=== PATIENT | male | born 1995 | race Caucasian/White ===

== ENCOUNTER 2017-04-06 11:18 | Observation (INO) | payer OTHER ==
[~2017-04-06] VITALS: Ht 177.8 cm; Wt 89.2 kg
[~2017-04-06 11:18] MED LIST: SERT-234 PO
[2017-04-06] MEDS ORDERED: LEVAQUIN 750MG / 150ML D5W IV STA (11:34)
[2017-04-06] MEDS ORDERED: ALBUT/IPRATROP 3MG/0.5MG NEB 3 ML VIAL INH STA (11:34)
[2017-04-06] MEDS ORDERED: SODIUM CHLORIDE 0.9% 1000ML 1,000 ML IV STA (11:34)
--- NOTE | 2017-04-06 11:45 | EMERGENCY ROOM VISIT NOTE ---
History Report prepared by Renea: Anna Joy Under the Supervision of: Dr. Rolando Murphy M.D. First contact with patient: 11:28 Chief Complaint: RESPIRATORY PROBLEMS Stated Complaint: SHORTNESS OF BREATH - MONO Nursing Triage Summary: Pt sent by [facility]. Pt states test mono + this morning. Pt reports cough with clear sputum, sob, tired, sore throat. Sx began . Pt states dx last with pnx. Given Amoxicillin and Biaxin. History of Present Illness The patient is a 21 year old male who presents to the Emergency Room with complaints of a constant cough beginning on 03/21/16. The patient reports constant shortness of breath beginning a week ago. He states he has been eating and drinking normally. He denies any fever. The patient has been using an albuterol inhaler for his cough. The patient was sent to the ED from [facility] for shortness of breath. He tested positive on the mono spot testing. Lab work from today shows, white blood cell count of 8.6 and a normal renal panel. He is on day 6 of Biaxin and day four of Amoxicillin for pneumonia. The patient states he feels better since starting the antibiotics. The patient did not have a flu shot this year. He denies any recent sick contacts. The patient has never had mono or pneumonia before. Source of History: patient Onset: 03/21/16 Position: other (generalized) Quality: other (cough) Timing: constant Associated Symptoms: + cough, + SOB, No fevers Review of Systems See HPI for pertinent positives & negatives. A total of 10 systems reviewed and were otherwise negative. Past Medical & Surgical Medical Problems: (1) No Known Active Medical Problems Family History Patient reports no known family medical history. Social History Smoking Status: Current Every Day Smoker Marital Status: single Housing Status: lives with roommate Occupation Status: [employer] student Current/Historical Medications No Active Prescriptions or Reported Meds Allergies Coded Allergies: No Known Allergies (Unverified , 04/06/17) Physical Exam Vital Signs Date Time Temp Pulse Resp B/P (MAP) Pulse Ox O2 Delivery O2 Flow Rate FiO2 04/06/17 12:37 98 18 122/81 98 Room Air 04/06/17 11:24 95 Room Air 04/06/17 11:22 37.0 101 18 124/75 95 Room Air Physical Exam GENERAL: Patient is in no acute distress. HEENT: No acute trauma, normocephalic atraumatic, mucous membranes moist, no nasal congestion, no scleral icterus. NECK: No stridor, no adenopathy, no meningismus, trachea is midline. LUNGS: Crackles through out entire left lung, a few scattered wheezes heard, right lung clear. HEART: Tachycardic, regular rhythm, no murmurs. ABDOMEN: Soft, nontender, bowel sounds positive, no hernias, no peritonitis. EXTREMITIES: No cyanosis or edema, full range of motion of all the joints without pain or difficulty, no signs for acute trauma. NEUROLOGIC: Oriented x 3, no acute motor or sensory deficits, no focal weakness. SKIN: No rash, no jaundice, no diaphoresis. Medical Decision & Procedures ER Provider Diagnostic Interpretation: EKG shows a normal sinus rhythm with a rate of 78, no acute ischemia, no ectopy. Radiology results as stated below per my review and radiologist interpretation: CHEST 2 VIEWS ROUTINE FINDINGS: Lung volumes are normal. There is no pneumothorax or pleural effusion. There is lower lung reticulonodular interstitial thickening, greater on the left. There is no lobar consolidation. Cardiac size is normal. Mediastinal contours are normal. IMPRESSION: Lower lung reticulonodular interstitial thickening, greater on the left. The findings suggest an infectious process such as bronchiolitis/bronchopneumonia. Asymmetric interstitial lung disease could appear similar although is considered less likely. Electronically signed by: Richie Banks M.D. Laboratory Results 04/06/17 11:50 Red Blood Count 4.96, Mean Corpuscular Volume 87.3, Mean Corpuscular Hemoglobin 30.8, Mean Corpuscular Hemoglobin Concent 35.3, Mean Platelet Volume 8.9, Neutrophils (%) (Auto) 53.6, Lymphocytes (%) (Auto) 35.6, Monocytes (%) (Auto) 6.1, Eosinophils (%) (Auto) 3.8, Basophils (%) (Auto) 0.7, Neutrophils # (Auto) 4.77, Lymphocytes # (Auto) 3.17, Monocytes # (Auto) 0.54, Eosinophils # (Auto) 0.34, Basophils # (Auto) 0.06 04/06/17 11:50 Test 04/06/17 11:40 04/06/17 11:50 Influenza Type A Antigen Neg for Influ A (NEG) Influenza Type B Antigen Neg for Influ B (NEG) White Blood Count 8.90 K/uL (4.8-10.8) Red Blood Count 4.96 M/uL (4.7-6.1) Hemoglobin 15.3 g/dL (14.0-18.0) Hematocrit 43.3 % (42-52) Mean Corpuscular Volume 87.3 fL (80-100) Mean Corpuscular Hemoglobin 30.8 pg (25-34) Mean Corpuscular Hemoglobin Concent 35.3 g/dl (32-36) Platelet Count 261 K/uL (130-400) Mean Platelet Volume 8.9 fL (7.4-10.4) Neutrophils (%) (Auto) 53.6 % Lymphocytes (%) (Auto) 35.6 % Monocytes (%) (Auto) 6.1 % Eosinophils (%) (Auto) 3.8 % Basophils (%) (Auto) 0.7 % Neutrophils # (Auto) 4.77 K/uL (1.4-6.5) Lymphocytes # (Auto) 3.17 K/uL (1.2-3.4) Monocytes # (Auto) 0.54 K/uL (0.11-0.59) Eosinophils # (Auto) 0.34 K/uL (0-0.5) Basophils # (Auto) 0.06 K/uL (0-0.2) RDW Standard Deviation 38.5 fL (36.4-46.3) RDW Coefficient of Variation 12.1 % (11.5-14.5) Immature Granulocyte % (Auto) 0.2 % Immature Granulocyte # (Auto) 0.02 K/uL (0.00-0.02) Anion Gap 4.0 mmol/L (3-11) Est Creatinine Clear Calc Drug Dose 162.2 ml/min Estimated GFR () 147.2 Estimated GFR (Non- 127.0 BUN/Creatinine Ratio 20.7 (10-20) Lactic Acid Level 1.0 mmol/L (0.4-2.0) Calcium Level 9.5 mg/dl (8.5-10.1) Monoscreen POS (NEG) Laboratory results reviewed by me. Medications Administered Medications (Trade) Dose Ordered Sig/Sofía Route Start Time Stop Time Status Last Admin Dose Admin Sodium Chloride 1,000 ml @ 999 mls/hr Q1H1M STAT IV 04/06/17 11:34 04/06/17 12:34 DC 04/06/17 11:59 999 MLS/HR Levofloxacin (Levaquin / D5W) 750 mg NOW STAT IV 04/06/17 11:34 04/06/17 11:40 DC 04/06/17 12:03 750 MG Albuterol/ Ipratropium (Duoneb) 3 ml NOW STAT INH 04/06/17 11:34 04/06/17 11:40 DC 04/06/17 12:03 3 ML ED Course 1133: The patient was evaluated in room A12B. A complete history and physical exam was performed. 1134: Ordered Duoneb 3 ml INH, Levofloxacin 750 mg IV, Sodium Chloride 1000 ml @ 999 mls/hr IV. 1304: I updated the patient on his test results. He is agreeable to the treatment plan. 1307: Discussed the patient's case with Dr. Melara. The patient will be evaluated for further management. Medical Decision Differential diagnoses: pneumonia, influenza or flu-like symptoms, failed outpatient treatment, sepsis, dehydration, electrolyte imbalance. There is no leukocytosis or concerning anemia. No significant electrolyte abnormality or kidney failure. [place] testing was positive. Influenza testing was negative. Lactic acid level was not elevated making sepsis less likely. Chest film does show a left-sided pneumonia. Blood cultures are pending. EKG showed a sinus rhythm, no acute ischemia. The patient presents with symptoms consistent with pneumonia. He has failed outpatient treatment. He also has a positive mono test. The patient received a DuoNeb, IV Levaquin and IV saline, he is resting comfortably. Given the failed outpatient treatment, I do think a hospital stay is warranted. IV antibiotics are needed. I spoke to the patient and case management. The on-call hospitalist was consulted. Medication Reconcilliation Current Medication List: was personally reviewed by me Blood Pressure Screening Patient's blood pressure: Normal blood pressure Consults Time Called: 1301 Consulting Physician: Dr. Melara Returned Call: 1307 Discussed the patient's case with Dr. Bennett. The patient will be evaluated for further management. Impression Primary Impression: Pneumonia Additional Impressions: Mononucleosis Failure of outpatient treatment Scribe Attestation The scribe's documentation has been prepared under my direction and personally reviewed by me in its entirety. I confirm that the note above accurately reflects all work, treatment, procedures, and medical decision making performed by me. Departure Information Dispostion Being Evaluated By Hospitalist Prescriptions No Active Prescriptions or Reported Meds Referrals No Doctor, Assigned (PCP) Patient Instructions My [facility] Problem Qualifiers
[2017-04-06 12:13] LABS: BASO % 0.7 %; BASO ABS # 0.06 K/uL (0-0.2); EOS % 3.8 %; EOS ABS # 0.34 K/uL (0-0.5); HEMATOCRIT 43.3 % (42-52); HEMOGLOBIN 15.3 g/dL (14.0-18.0); IG# 0.02 K/uL (0.00-0.02); LYMPH % 35.6 %; LYMPH ABS # 3.17 K/uL (1.2-3.4); MEAN CELL VOLUME 87.3 fL (80-100); MEAN CORPUSCULAR HEMOGLOBIN 30.8 pg (25-34); MEAN CORPUSCULAR HGB CONC 35.3 g/dl (32-36); MEAN PLATELET VOLUME 8.9 fL (7.4-10.4); MONO % 6.1 %; MONO ABS # 0.54 K/uL (0.11-0.59); NEUT % 53.6 %; NEUT ABS # 4.77 K/uL (1.4-6.5); PLATELET COUNT 261 K/uL (130-400); RED CELL DISTRIBUTION WIDTH CV 12.1 % (11.5-14.5); RED CELL DISTRIBUTION WIDTH SD 38.5 fL (36.4-46.3)
[2017-04-06 12:30] LABS: INFLUENZA B ANTIGEN Neg for Influ B (NEG)
[2017-04-06 12:32] LABS: CALCIUM 9.5 mg/dl (8.5-10.1); CREATININE 0.81 mg/dl (0.60-1.40)
--- NOTE | 2017-04-06 12:40 | DIAGNOSTIC IMAGING REPORT ---
CHEST 2 VIEWS ROUTINE CLINICAL HISTORY: Cough and shortness of breath. COMPARISON STUDY: No previous studies for comparison. FINDINGS: Lung volumes are normal. There is no pneumothorax or pleural effusion. There is lower lung reticulonodular interstitial thickening, greater on the left. There is no lobar consolidation. Cardiac size is normal. Mediastinal contours are normal. IMPRESSION: Lower lung reticulonodular interstitial thickening, greater on the left. The findings suggest an infectious process such as bronchiolitis/bronchopneumonia. Asymmetric interstitial lung disease could appear similar although is considered less likely. Electronically signed by: Richie Bansk M.D. 04/06/2017 12:39 PM Dictated Date/Time: 04/06/2017 12:37 PM
[2017-04-06] MEDS ORDERED: ONDANSETRON INJ 2 MG/ML 2 ML VIAL IV PRN (14:00)
[2017-04-06] MEDS ORDERED: ALUMINUM/MAGNESIUM/SIMETH (MAALOX MAX) 30 ML UDC PO PRN (14:00)
[2017-04-06] MEDS ORDERED: MAGNESIUM HYDROXIDE SUSP 30 ML UDC PO PRN (14:00)
[2017-04-06] MEDS ORDERED: POLYETHYLENE (MIRALAX) 17 GM PACK PO PRN (14:00)
[2017-04-06] MEDS ORDERED: ACETAMINOPHEN 325 MG TAB PO PRN (14:00)
[2017-04-06] MEDS ORDERED: MAGIC MOUTHWASH PO PRN (14:00)
--- NOTE | 2017-04-06 14:13 | History and Physical ---
History & Physical Date & Time of Service: Apr 06, 2017 at 14:04 Chief Complaint: Shortness Of Breath - Meagher Primary Care Physician: No Doctor, Assigned History of Present Illness Source: patient, clinic records, hospital records Patient is a 21 y/o male, with no significant past medical history, who presented to the ED because of persistent illness x1 week. Patient was recently placed on Augmentin and Biaxin on 03/31. He notes mild improvement in his symptoms in the last few days, but no significant improved. He was sent to ED today from [facility] due to SOB. He was given a nebulizer in the ED with significant improvement in breathing. +sore throat, fatigue, cough w / yellow sputum production. He denies any fever/chills. He has been eating and drinking normally. He was found to be mono positive and PNA on CXR in ED. Patient has been to [facility] 3 times in the last week for persistent symptoms. Patient denies any fever, chills, sweats, lightheadedness, dizziness, vision changes, CP, palpitations, edema, wheezing, abdominal pain, nausea, vomiting, diarrhea, urinary symptoms, melena, numbness/tingling, weakness, muscle/joint pain, anxiety/depression, active bleeding, or new skin discoloration/changes. Past Medical/Surgical History Past medical history: NONE Past surgical history: Tonsillectomy Family History Patient reports no known family medical history. Social History Smoking Status: Former Smoker Smokeless Tobacco Use: No Alcohol Use: none Marital Status: single Occupational Status: [employer] student Allergies Coded Allergies: No Known Allergies (Unverified , 04/06/17) Home Medications No Active Prescriptions or Reported Meds Physical Exam Vital Signs Date Time Temp Pulse Resp B/P (MAP) Pulse Ox O2 Delivery O2 Flow Rate FiO2 04/06/17 12:37 98 18 122/81 98 Room Air 04/06/17 11:24 95 Room Air 04/06/17 11:22 37.0 101 18 124/75 95 Room Air General Appearance: WD/WN, no apparent distress Head: normocephalic, atraumatic Eyes: normal inspection, PERRL ENT: hearing grossly normal, + pharyngeal erythema Neck: supple Respiratory/Chest: no respiratory distress, no accessory muscle use, + crackles (L lung base ), + wheezing (mild expiratory wheeze ), + pertinent finding ( course breath sound throughout, anterior/posterior ) Cardiovascular: regular rate, rhythm Abdomen/GI: normal bowel sounds, non tender, soft Back: normal inspection Extremities/Musculoskelatal: no calf tenderness, no pedal edema Neurologic/Psych: alert, normal mood/affect, oriented x 3 Skin: normal color, warm/dry, no rash Diagnostics Laboratory Results Results Past 24 Hours Test 04/06/17 11:40 04/06/17 11:50 Range/Units Influenza Type A Antigen Neg for Influ A NEG Influenza Type B Antigen Neg for Influ B NEG White Blood Count 8.90 4.8-10.8 K/uL Red Blood Count 4.96 4.7-6.1 M/uL Hemoglobin 15.3 14.0-18.0 g/dL Hematocrit 43.3 42-52 % Mean Corpuscular Volume 87.3 80-100 fL Mean Corpuscular Hemoglobin 30.8 25-34 pg Mean Corpuscular Hemoglobin Concent 35.3 32-36 g/dl Platelet Count 261 130-400 K/uL Mean Platelet Volume 8.9 7.4-10.4 fL Neutrophils (%) (Auto) 53.6 % Lymphocytes (%) (Auto) 35.6 % Monocytes (%) (Auto) 6.1 % Eosinophils (%) (Auto) 3.8 % Basophils (%) (Auto) 0.7 % Neutrophils # (Auto) 4.77 1.4-6.5 K/uL Lymphocytes # (Auto) 3.17 1.2-3.4 K/uL Monocytes # (Auto) 0.54 0.11-0.59 K/uL Eosinophils # (Auto) 0.34 0-0.5 K/uL Basophils # (Auto) 0.06 0-0.2 K/uL RDW Standard Deviation 38.5 36.4-46.3 fL RDW Coefficient of Variation 12.1 11.5-14.5 % Immature Granulocyte % (Auto) 0.2 % Immature Granulocyte # (Auto) 0.02 0.00-0.02 K/uL Sodium Level 135 136-145 mmol/L Potassium Level 4.0 3.5-5.1 mmol/L Chloride Level 103 98-107 mmol/L Carbon Dioxide Level 28 21-32 mmol/L Anion Gap 4.0 3-11 mmol/L Blood Urea Nitrogen 17 7-18 mg/dl Creatinine 0.81 0.60-1.40 mg/dl Est Creatinine Clear Calc Drug Dose 162.2 ml/min Estimated GFR () 147.2 Estimated GFR (Non- 127.0 BUN/Creatinine Ratio 20.7 10-20 Random Glucose 84 70-99 mg/dl Lactic Acid Level 1.0 0.4-2.0 mmol/L Calcium Level 9.5 8.5-10.1 mg/dl Monoscreen POS NEG Microbiology Results 04/06/17 Blood Culture, Received Pending 04/06/17 Blood Culture, Received Pending Diagnostic Radiology CHEST 2 VIEWS ROUTINE CLINICAL HISTORY: Cough and shortness of breath. COMPARISON STUDY: No previous studies for comparison. FINDINGS: Lung volumes are normal. There is no pneumothorax or pleural effusion. There is lower lung reticulonodular interstitial thickening, greater on the left. There is no lobar consolidation. Cardiac size is normal. Mediastinal contours are normal. IMPRESSION: Lower lung reticulonodular interstitial thickening, greater on the left. The findings suggest an infectious process such as bronchiolitis/bronchopneumonia. Asymmetric interstitial lung disease could appear similar although is considered less likely. Electronically signed by: Richie Banks M.D. 04/06/2017 12:39 PM Dictated Date/Time: 04/06/2017 12:37 PM The status of this report is Signed. Draft = Not yet reviewed or approved by Radiologist. Signed = Reviewed and approved by Radiologist. EKG TASHI KUNZ ID:[id number] 06-APR-2017 11:55:06 [facility] Normal sinus rhythm with sinus arrhythmia Normal ECG No previous ECGs available 25mm/s 10mm/mV 150Hz 8.0 SP2 12SL 241 NILES: 13 Referred by: Unconfirmed Vent. rate 78 BPM VA interval 132 ms QRS duration 90 ms QT/QTc 338/385 ms P-R-T axes 35 52 1995 (21 yr) Male Room: Loc:15 [employer] Warehouse:CARLOTA Edmonds ind: Impression Assessment and Plan Patient is a 21 y/o male, with no significant past medical history, who presented to the ED because of persistent illness x1 week. +Meagher, community-acquired PNA: - Admit to med/surg observation - DuoNebs QID and PRN for SOB/wheezing - Levaquin 750 mg x5 days- started treatment on 04/06 - IV Solu-Medrol 60 mg BID - Magic mouthwash PRN - Flu swab negative - BCx pending DVT prophylaxis: Ambulation Code Status: LEVEL I, FULL Dispo: [employer] [facility] student- no discharge needs anticipated Resuscitation Status FULL RESUSCITATION VTE Prophylaxis VTE Risk Assessment Done? Y/N: Yes Risk Level: Low Given or contraindicated: T.E.D. Stockings, SCD's Note Attending Admit Note & Attestation: Pt seen/examined, chart reviewed, care plan d/w YOVANA Bentley. I agree w/ the astudillo components of her documentation. 21yo male [employer] student with no significant PMH (tonsillectomy as a child) who presents after 3 separate visits in the last [address] [facility] for ongoing sore throat, cough, and congestion. No fever/chills & appetite has been decent. He has been taking oral antibiotics for his pneumonia without relief of pulmonary symptoms. Had +mono testing at [facility] today , and then this was repeated in our ER - again was positive. Reports that the duoneb was quite helpful for his symptoms. PMH, PSH, allergies, meds, sochx, famhx, ros - reviewed gen - coughing, nontoxic throat - tonsils absent, but mod-severe posterior pharyngeal erythema and petechiae present neck - mild lymphadenopathy heart - RRR lungs - extensive wheezing b/l, crackles left base, no distress abd - no splenomegaly, soft ext - no edema cbc, bmp wnl cxr - reviewed, monospot + A/P: 1. acute pharyngitis x 2 weeks with +mono 2. acute bronchitis with probable LLL community-acquired pneumonia supportive care for mono; would check LFTs in AM to r/o any acute hepatitis from EBV levaquin daily x 7 days for LLL pneumonia; etiology of pneumonia - likely bacterial superinfection, doubt EBV pneumonia but theoretically possible for wheezing - solumedrol, nebs; would give both at discharge observation status Rhys Lui MD
[2017-04-06] MEDS ORDERED: IV FLUIDS COMPLETED PRN (15:00)
[2017-04-06 15:11] VITALS: Ht 177.8 cm; Wt 89.2 kg
[2017-04-06] MEDS ORDERED: DEXAMETHASONE CONC SOLN 3.75 MG, NYSTATIN SUSP 30 ML, DiphenhydrAMINE HCL SYRUP 300 MG,... PO PRN ×5 (15:45)
[2017-04-06] MEDS: METHYLPREDNISOLONE IV 60 MG in SYRINGE 0 ML IV SCH (16:48)
[2017-04-06] MEDS: ALBUT/IPRATROP 3MG/0.5MG NEB 3 ML VIAL INH SCH (19:08)
[2017-04-06 19:10] VITALS: PULSE 88; O2SAT 95
[2017-04-07] VITALS (9 sets, daily range): BP systolic 105–131; BP diastolic 58–77; PULSE 77–113; TEMP 36.7–37.1; O2SAT 92–98
[2017-04-07] MEDS: METHYLPREDNISOLONE IV 60 MG in SYRINGE 0 ML IV SCH (05:58)
[2017-04-07] MEDS ORDERED: NURSING DECISION MEDICATION ORDER SCH (06:15)
[2017-04-07] MEDS ORDERED: COUGH DROP (SUGAR FREE) LOZ 24 LOZ/1 BOX LOZ ONE (06:19)
[2017-04-07] MEDS ORDERED: COUGH DROP (SUGAR FREE) LOZ 24 LOZ/1 BOX LOZ PRN (07:00)
[2017-04-07] MEDS: ALBUT/IPRATROP 3MG/0.5MG NEB 3 ML VIAL INH SCH ×4 (07:13→20:26)
[2017-04-07 07:43] LABS: ALBUMIN 3.5 gm/dl (3.4-5.0); CALCIUM 9.3 mg/dl (8.5-10.1); CREATININE 0.86 mg/dl (0.60-1.40); POTASSIUM 4.4 mmol/L (3.5-5.1)
[2017-04-07 07:46] LABS: TOTAL PROTEIN 7.9 gm/dl (6.4-8.2)
--- NOTE | 2017-04-07 09:54 | DIAGNOSTIC IMAGING REPORT ---
CHEST 2 VIEWS ROUTINE CLINICAL HISTORY: Pneumonia. COMPARISON STUDY: Chest radiograph April 06, 2017. FINDINGS: Lung volumes are normal. There is no pneumothorax or pleural effusion. There is no consolidation. Linear left lower lung opacity favors atelectasis. Mild lower lung reticulonodular interstitial thickening has improved. Cardiac size is normal. Mediastinal contours are normal. IMPRESSION: Interval improvement in mild lower lung reticulonodular interstitial thickening. No consolidation identified. Electronically signed by: Richie Bakns M.D. 04/07/2017 9:53 AM Dictated Date/Time: 04/07/2017 9:51 AM
--- NOTE | 2017-04-07 09:59 | Progress Note ---
Subjective Date of Service: Apr 07, 2017. Subjective Pt evaluation today including: conversation w/ patient, physical exam, chart review, lab review, review of studies, review of inpatient medication list Feeling generally better, however still tired, associated with cough, denies abdominal pain or fever or chills, no skin rashes Problem List Medical Problems: (1) Failure of outpatient treatment Status: Acute (2) Mononucleosis Status: Acute (3) Pneumonia Status: Acute Review of Systems Constitutional: + weakness, + fatigue, No fever, No chills, No sweats, No weight loss, No problem reported Eyes: No worsening of vision, No eye pain, No redness, No discharge, No diplopia ENT: No hearing loss, No unusual epistaxis, No nasal symptoms, No sore throat, No tinnitus, No dental problems, No trouble swallowing Respiratory: + cough, + wheezing, No sputum, No shortness of breath, No dyspnea on exertion, No dyspnea at rest, No hemoptysis Cardiac: No chest pain, No orthopnea, No PND, No edema, No claudication, No palpitations Abdomen: No pain, No nausea, No vomiting, No diarrhea, No constipation Musculoskeletal: No joint pain, No muscle pain, No swelling, No calf pain Male : No dysuria, No urinary frequency, No incontinence, No nocturia more than once/night, No slowing stream, No hematuria Neurologic: No memory loss, No paralysis, No weakness, No numbness/tingling, No vertigo, No balance problems Psychiatric: No depression symptoms, No anhedonism, No anxiety, No insomnia, No substance abuse Heme: No abnormal bleeding/bruising, No clotting problems, No swollen lymph nodes, No night sweats Endo: No fatigue, No excessive thirst, No excessive urination Skin: No rash, No itch, No new/changing skin lesions, No color change, No bleeding Objective Vital Signs Date Time Temp Pulse Resp B/P (MAP) Pulse Ox O2 Delivery O2 Flow Rate FiO2 04/07/17 08:00 94 Room Air 04/07/17 07:23 36.8 77 18 105/67 (80) 94 04/07/17 07:14 85 15 94 Room Air 04/07/17 00:16 36.7 90 16 119/74 (89) 98 Room Air 04/07/17 00:01 Room Air 04/06/17 20:01 Room Air 04/06/17 19:10 88 16 95 Room Air 04/06/17 16:31 Room Air 04/06/17 15:11 Room Air 04/06/17 14:57 86 98 126/81 98 Room Air 04/06/17 12:37 98 18 122/81 98 Room Air 04/06/17 11:24 95 Room Air 04/06/17 11:22 37.0 101 18 124/75 95 Room Air Physical Exam General Appearance: WD/WN, no apparent distress Eyes: normal inspection, PERRL, EOMI, sclerae normal ENT: normal ENT inspection, hearing grossly normal, pharynx normal Neck: supple, no adenopathy, thyroid normal, no JVD, no carotid bruits, trachea midline Respiratory/Chest: normal breath sounds, no respiratory distress, no accessory muscle use, + decreased breath sounds, + rales Cardiovascular: regular rate, rhythm, no edema, no gallop, no JVD, no murmur Abdomen: normal bowel sounds, non tender, soft, no organomegaly, no pulsatile mass Extremities: normal range of motion, non-tender, normal inspection, no pedal edema, no calf tenderness, normal capillary refill, pelvis stable 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, no motor/sensory deficits, alert, normal mood/affect, oriented x 3 Skin: normal color, warm/dry, no rash Lymphatic: no adenopathy Laboratory Results Last 24 Hours Test 04/06/17 11:40 04/06/17 11:50 04/07/17 06:39 Influenza Type A Antigen Neg for Influ A Influenza Type B Antigen Neg for Influ B White Blood Count 8.90 K/uL Red Blood Count 4.96 M/uL Hemoglobin 15.3 g/dL Hematocrit 43.3 % Mean Corpuscular Volume 87.3 fL Mean Corpuscular Hemoglobin 30.8 pg Mean Corpuscular Hemoglobin Concent 35.3 g/dl Platelet Count 261 K/uL Mean Platelet Volume 8.9 fL Neutrophils (%) (Auto) 53.6 % Lymphocytes (%) (Auto) 35.6 % Monocytes (%) (Auto) 6.1 % Eosinophils (%) (Auto) 3.8 % Basophils (%) (Auto) 0.7 % Neutrophils # (Auto) 4.77 K/uL Lymphocytes # (Auto) 3.17 K/uL Monocytes # (Auto) 0.54 K/uL Eosinophils # (Auto) 0.34 K/uL Basophils # (Auto) 0.06 K/uL RDW Standard Deviation 38.5 fL RDW Coefficient of Variation 12.1 % Immature Granulocyte % (Auto) 0.2 % Immature Granulocyte # (Auto) 0.02 K/uL Sodium Level 135 mmol/L 135 mmol/L Potassium Level 4.0 mmol/L 4.4 mmol/L Chloride Level 103 mmol/L 103 mmol/L Carbon Dioxide Level 28 mmol/L 25 mmol/L Anion Gap 4.0 mmol/L 7.0 mmol/L Blood Urea Nitrogen 17 mg/dl 17 mg/dl Creatinine 0.81 mg/dl 0.86 mg/dl Est Creatinine Clear Calc Drug Dose 162.2 ml/min 152.7 ml/min Estimated GFR () 147.2 143.7 Estimated GFR (Non- 127.0 124.0 BUN/Creatinine Ratio 20.7 19.9 Random Glucose 84 mg/dl 140 mg/dl Lactic Acid Level 1.0 mmol/L Calcium Level 9.5 mg/dl 9.3 mg/dl Monoscreen POS Total Bilirubin 0.5 mg/dl Aspartate Amino Transf (AST/SGOT) 20 U/L Alanine Aminotransferase (ALT/SGPT) 53 U/L Alkaline Phosphatase 84 U/L Total Protein 7.9 gm/dl Albumin 3.5 gm/dl Globulin 4.4 gm/dl Albumin/Globulin Ratio 0.8 Assessment and Plan 21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 male [employer] student admitted on 04/06/2017 because of mononucleosis and possible pneumonia acute pharyngitis x 2 weeks with +mono, Possible mononucleosis acute bronchitis with probable LLL community-acquired pneumonia The above conditions are generally improving, and repeating chest x-ray two- view to define the pneumonia to help for make judgment length of antibiotic Morning labs include liver function test was reviewed which is unremarkable Continue supportive care for mono; plenty fluid intake, nutrition support and rest, counseling about no contact sport in 21 days Started levaquin daily x 7 days for LLL pneumonia; continue solumedrol, nebs, will plan to continue this medicine upon discharge Counseling patient of his medical conditions which including mononucleosis and pneumonia, advice reschedule of coming test of his study, convincing him to stay today until blood culture 48 hours negative Also offered to talk to parents, patient declined for now All of the above conversation witnessed by and registered nurse DVT prophylaxis up and walk Continued [facility] stay due to: home environment unsafe for pt Discharge planning: home
[2017-04-07] MEDS: LEVOFLOXACIN 750 MG TAB PO SCH (11:22)
[2017-04-07] MEDS: METHYLPREDNISOLONE IV 40 MG in SYRINGE 0 ML IV SCH (20:33)
[2017-04-08] MEDS: ALBUT/IPRATROP 3MG/0.5MG NEB 3 ML VIAL INH SCH (07:00)
[2017-04-08 07:03] VITALS: PULSE 83; O2SAT 97
[2017-04-08 07:15] VITALS: BP 130/82; PULSE 86; TEMP 36.7; O2SAT 98
[2017-04-08] MEDS: METHYLPREDNISOLONE IV 40 MG in SYRINGE 0 ML IV SCH (08:24)
[2017-04-08 09:43] LABS: HEMATOCRIT 41.7 % (42-52); HEMOGLOBIN 14.2 g/dL (14.0-18.0); MEAN CELL VOLUME 88.5 fL (80-100); MEAN CORPUSCULAR HEMOGLOBIN 30.1 pg (25-34); MEAN CORPUSCULAR HGB CONC 34.1 g/dl (32-36); MEAN PLATELET VOLUME 9.2 fL (7.4-10.4); PLATELET COUNT 287 K/uL (130-400); RED CELL DISTRIBUTION WIDTH CV 12.6 % (11.5-14.5); WHITE BLOOD COUNT 25.11 K/uL (4.8-10.8)
[2017-04-08 10:08] LABS: BASO % 0.1 %; BASO ABS # 0.02 K/uL (0-0.2); IG# 0.18 K/uL (0.00-0.02); LYMPH % 8.6 %; LYMPH ABS # 2.15 K/uL (1.2-3.4); MONO % 3.9 %; MONO ABS # 0.98 K/uL (0.11-0.59); NEUT % 86.7 %; NEUT ABS # 21.78 K/uL (1.4-6.5)
[2017-04-08 10:14] LABS: CALCIUM 9.3 mg/dl (8.5-10.1); CREATININE 0.81 mg/dl (0.60-1.40); POTASSIUM 3.9 mmol/L (3.5-5.1)
[2017-04-08] MEDS: LEVOFLOXACIN 750 MG TAB PO SCH (11:13)
[2017-04-08] MEDS ORDERED: ALBUT/IPRATROP 3MG/0.5MG NEB 3 ML VIAL INH PRN (12:00)
[2017-04-08] MEDS ORDERED: PRVHFAIN INH (12:10)
[2017-04-08] MEDS ORDERED: LVQ750 PO (12:10)
--- NOTE | 2017-04-08 12:12 | Discharge Instructions ---
Discharge Instructions Date of Service Apr 08, 2017. Admission Reason for Admission: Mononucleosis, Pneumonia Discharge Discharge Diagnosis / Problem: Mononucleosis, PNA Discharge Goals Goal(s): Improve disease control Activity Recommendations Activity Limitations: resume your previous activity . Instructions / Follow-Up Instructions / Follow-Up Please follow up with your primary care provider in one week Current Hospital Diet Patient's current hospital diet: Regular Diet Discharge Diet Recommended Diet: Regular Diet Procedures Procedures Performed: Chest x ray Pending Studies Studies pending at discharge: no Medical Emergencies . Who to Call and When: Medical Emergencies: If at any time you feel your situation is an emergency, please call 911 immediately. . Non-Emergent Contact Non-Emergency issues call your: Primary Care Provider Call Non-Emergent contact if: you have a fever, you have any medication questions . . "Provider Documentation" section prepared by Maryann San. . VTE Core Measure Inpt VTE Proph given/why not?: Tyson Dale, [facility]IE[facility]
--- NOTE | 2017-04-08 12:32 | Discharge Summary ---
Discharge Summary Date of Service Apr 08, 2017. Discharge Summary Admission Date: Apr 06, 2017 at 14:03 Discharge Date: Apr 08, 2017 Discharge Disposition: Home Principal Diagnosis: Pneumonia, mononucleosis Procedures: CHEST 2 VIEWS ROUTINE CLINICAL HISTORY: Pneumonia. COMPARISON STUDY: Chest radiograph April 06, 2017. FINDINGS: Lung volumes are normal. There is no pneumothorax or pleural effusion. There is no consolidation. Linear left lower lung opacity favors atelectasis. Mild lower lung reticulonodular interstitial thickening has improved. Cardiac size is normal. Mediastinal contours are normal. IMPRESSION: Interval improvement in mild lower lung reticulonodular interstitial thickening. No consolidation identified. CHEST 2 VIEWS ROUTINE CLINICAL HISTORY: Cough and shortness of breath. COMPARISON STUDY: No previous studies for comparison. FINDINGS: Lung volumes are normal. There is no pneumothorax or pleural effusion. There is lower lung reticulonodular interstitial thickening, greater on the left. There is no lobar consolidation. Cardiac size is normal. Mediastinal contours are normal. IMPRESSION: Lower lung reticulonodular interstitial thickening, greater on the left. The findings suggest an infectious process such as bronchiolitis/bronchopneumonia. Asymmetric interstitial lung disease could appear similar although is considered less likely. Electronically signed by: Richie Banks M.D. 04/06/2017 12:39 PM Medication Reconciliation New Medications: Albuterol (Ventolin Hfa) 60 Puffs/5400 Mcg Aers 2 PUFF INH Q4H for SOB/Wheezing for 7 Days, #1 INHALER Levofloxacin (Levofloxacin) 750 Mg Tab 750 MG PO DAILY@11 for 4 Days, #4 TAB Discharge Exam ROS Constitutional: no chills, aches, sweats or fever Respiratory: no sob, mild cough but no sputum or wheezing Cardiac: no chest pain, palpitations, edema, orthopnea or lightheadedness GI: no abdominal pain, nausea, vomiting, diarrhea or constipation : no dysuria or hesitancy Extremities: no joint pain or weakness Skin: no rash All other systems reviewed and negative PE General: no distress Eyes: normal inspection, PERLL Respiratory: chest non tender, fine crackles bilateral bases, no respiratory distress, no accessory muscle use Cardiac: regular rate and rhythm, no rub or gallop, no murmur, no edema, no jvd GI/: active bowel sounds, no abd pain or tenderness, soft, non distended Extremities: normal range of motion, normal strength, non tender Neuro/Psych: alert and oriented x 3, normal mood and affect Skin: normal color, dry Hospital Course Patient is a 21 y/o male, with no significant past medical history, who presented to the ED because of persistent illness x1 week. Patient was recently placed on Augmentin and Biaxin on 03/31. He was sent to ED today from [facility] due to SOB. He was given a nebulizer in the ED with significant improvement in breathing. +sore throat, fatigue, cough w/ yellow sputum production. He was found to be mono positive and PNA on CXR in ED. Acute pharyngitis x 2 weeks with +mono, - Acute bronchitis with probable LLL community-acquired pneumonia - The above conditions are generally improving and repeat chest x ray shows interval improvement in consolidation - LFTs unremarkable - supportive care for mono, counseling about no contact sport in 21 days - Started levaquin daily x 7 days for LLL pneumonia; solumedrol x3 days - no taper for home, nebs - changed to inhaler for home Total Time Spent: Greater than 30 minutes This includes examination of the patient, discharge planning, medication reconciliation, and communication with other providers. Discharge Instructions Please refer to the electronic Patient Visit Report (Discharge Instructions) for additional information. Follow-Up pcp in 1 week Additional Copies To [facility]
[2017-04-08 12:41] VITALS: BP 130/82; PULSE 86; TEMP 36.7; O2SAT 98
== END 2017-04-08 01:30 | disposition home or self-care (01) ==
LOC: C.EDB 11:19 → C.MS4W 14:03 → ENRESERV 14:07
PROVIDERS: ADMIT Internal Medicine; ATTEND Hospitalist
DX: J18.9 Pneumonia, unspecified organism (principal); B27.90 Infectious mononucleosis, unspecified without complication; J20.9 Acute bronchitis, unspecified; Z87.891 Personal history of nicotine dependence